=== PATIENT | female | born 1945 | race African-American/Black ===

== ENCOUNTER → 2016-09-22 | Outpatient (CLI) | payer MEDICARE, BC ==
--- NOTE | ~2016-09-22 | CT69 ---
[facility] A Service of [facility] RADIOLOGY TEXT RESULTS PATIENT: ELLIE BOSS LOCATION: [facility] : 47 UNIT #: [id number] AGE: [address]: ARTEMIO COBOS MD SEX: F ORDER DR: [id number] [facility]. [place], [place] [address] [id number] O MR#: [id number] Acc #: [id number] NAME: ELLIE BOSS : 1945 SEX: F STUDY DATE/TIME: 09/22/2016 17:36 UNIT: [facility] ROOM: STUDY DESCRIPTION: CT Head W Contrast Attending Physician: Artemio Cobos M.D. Referring Physician: Artemio Cobos M.D. Ordering Physician: Artemio Cobos M.D. Primary Care Physician: Artemio Cobos M.D. MEDICAL IMAGING REPORT This report is preliminary unless electronic signature is present EXAM Contrast-enhanced head CT 09/22/[address] angiogram 06/01/2012. HISTORY Transient episode of headache, family history of aneurysm. PROCEDURE This CT examination was performed with one or more of the following radiation dose reduction techniques: automatic exposure control, adjustment of mA and/or kV according to patient size, and iterative reconstruction. FINDINGS There is no intracranial mass or abnormal enhancement. Brain parenchymal density is normal. There is no hydrocephalus or extraaxial fluid collection. The extracranial soft tissues, the skull base and calvaria are unremarkable. If there is clinical concern about intracranial aneurysm, contrast-enhanced head CT in no way represents a screening study though the patient did have a normal head CT angiogram in May 2012. IMPRESSION Normal negative contrast-enhanced head CT. Dictated by... Servando Srinivasan M.D. THIS IS AN ELECTRONICALLY VERIFIED REPORT [facility] A Service of [facility] RADIOLOGY TEXT RESULTS PATIENT: ELLIE BOSS LOCATION: [facility] : 47 UNIT #: [id number] AGE: [address]: ARTEMIO COBOS MD SEX: F ORDER DR: Servando Srinivasan M.D. at 09/23/2016 2:58 PM [facility]EV/[place] TD: 09/23/2016 06:54 JOB #: [id number] MEDICAL IMAGING REPORT Page 1 of 1 COPY
[2016-09-22 17:55] LABS: POC - CREATININE 0.88 mg/dL (0.44-1.03); POC - GFR >60.0 mL/min (>60)
== END | disposition home or self-care (01) ==
LOC: CCAT 16:21
PROVIDERS: Family Medicine
DX: Z00.00 Encounter for general adult medical examination without abnormal findings (principal); Z82.49 Family history of ischemic heart disease and other diseases of the circulatory system
CPT/HCPCS: 70460; 82565; Q9967